=== PATIENT | female | born 2005 | race African-American/Black ===

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

== ENCOUNTER 2023-02-05 10:09 | Emergency (ER) | payer OTHER, MEDICAID, SELFPAY ==
[2023-02-05] VITALS (10 sets, daily range): BP systolic 121–142; BP diastolic 75–81; PULSE 88–125; RESP 16–28; TEMP 36.7; O2SAT 98–99; BMI 35.2
[2023-02-05] MEDS: LORazepam 0.5 MG TABLET PO (11:20)
--- NOTE | 2023-02-05 11:29 | ED_ITS ---
HPI - Arrhythmia/Palpitations <Shefali Pimentel, [facility] - Last Filed: 02/05/23 13:21> General Chief Complaint: Arrhythmia/Palpitations Stated Complaint: panic attack, heart palpatations Time Seen by Provider: 02/05/23 10:39 Source: patient Mode of arrival: Ambulatory History of Present Illness HPI narrative: This is a 18-year-old female presents to the emergency department with her father after reported panic attack earlier today. States that she has not seen a primary care provider in a couple of years and does not take anything for mood. She denies homicidal or suicidal ideation, states that she does not know why this sensation of palpitations came on, denies shortness of breath, recent illness like fever or chills, denies any urinary complaint, denies any changes to her health or daily activities recently. States that she is had panic attacks in the past, states they come on and cause her to feel like her heart is racing. She denies chest pressure or chest pain, denies any recent injury or illness. She states that she is been hydrated denies any unsafe environment at home or at work. 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 She states that they have a good relationship. She is not in counseling and does not have a therapist. She states that she is no longer on control pills, her last menstrual cycle was last month, states she has irregular cycles, denies any abdominal pain or pelvic pain, states that she does not have any abnormal vaginal discharge but on review of her previous visits, she is had history of vaginitis and bacterial vaginosis. She denies any upper respiratory symptoms like cough, congestion or rhinorrhea. Related Data Home Medications Medication Instructions Recorded Confirmed control PO 01/16/22 10/08/22 Previous Rx's Medication Instructions Recorded triamcinolone acetonide 0.5 % 1 applic topical TID #15 grams 01/16/22 topical cream permethrin 1 % topical liquid 30 ml topical ONCE #59 mL 10/08/22 (Lice Treatment (permethrin)) lorazepam 0.5 mg tablet 0.5 mg PO BID PRN anxiety #5 tabs 02/05/23 metronidazole 500 mg tablet 500 mg PO BID 10 days #20 tabs 02/05/23 nitrofurantoin 100 mg PO BID 5 days #10 caps 02/05/23 monohydrate/macrocrystals 100 mg capsule (Macrobid) Allergies Allergy/AdvReac Type Severity Reaction Status Date / Time No Known Drug Allergies Allergy Verified 02/05/23 10:12 Review of Systems <TERRY Coleman - Last Filed: 02/05/23 13:21> Review of Systems ROS Unobtainable: All systems reviewed & are unremarkable except as noted in HPI and below Patient History <TERRY Coleman - Last Filed: 02/05/23 13:21> Medical History Acne (~2016) Anxiety (~2019) Eczema Heavy menstrual period (~2020) Influenza B Irregular menstrual cycle (~2019) Painful menstrual periods (~2020) Family History Grandfather Diabetes mellitus Hypertension Grandmother Breast cancer Social History Smoking Status: Never smoker Smoking Status: Never smoker alcohol intake frequency: holidays/special occasions only Substance Use Type: does not use Exam <TERRY Coleman - Last Filed: 02/05/23 13:21> Narrative Exam Narrative: Reviewed vitals signs and nursing notes. General: Pleasant, sitting upright, in no acute distress, well groomed, afebrile HEENT: symmetrical facial expressions, moist mucous membranes, neck is supple CV: regular rate and rhythm, warm extremities Respiratory: normal work of breathing, without tachypnea or hypoxia. GI: abdomen soft, nondistended, without CVA tenderness bilaterally. MSK: moves all extremities, no weakness, normal tone, ambulatory without deficit Skin: brisk capillary refill, without rash or wound Neuro: clear speech and normal cognition, A&O x3, GCS 15, no focal motor or sensation deficits, flat affect Initial Vital Signs Initial Vital Signs: Vital Signs Temperature 98.1 F 02/05/23 10:12 Pulse Rate 125 H 02/05/23 10:12 Respiratory Rate 16 02/05/23 10:12 Blood Pressure 142/77 H 02/05/23 10:12 Pulse Oximetry 98 02/05/23 10:12 Oxygen Delivery Method Room Air 02/05/23 10:12 <Remigio Pritchard DO - Last Filed: 02/06/23 08:42> Initial Vital Signs Initial Vital Signs: Vital Signs Temperature 98.1 F 02/05/23 10:12 Pulse Rate 125 H 02/05/23 10:12 Respiratory Rate 16 02/05/23 10:12 Blood Pressure 142/77 H 02/05/23 10:12 Pulse Oximetry 98 02/05/23 10:12 Oxygen Delivery Method Room Air 02/05/23 10:12 Course <TERRY Coleman - Last Filed: 02/05/23 13:21> Orders Ordered: Discontinued Medications Lorazepam (Lorazepam 0.5 Mg Tablet) 0.5 mg PO NOW ONE Stop: 02/05/23 10:56 Last Admin: 02/05/23 11:20 Dose: 0.5 mg Documented By: NELSON Metronidazole (Metronidazole 500 Mg Tablet) 500 mg PO NOW ONE Stop: 02/05/23 12:50 Last Admin: 02/05/23 13:20 Dose: 500 mg Documented By: SERVANDO Nitrofurantoin Macrocrystals (Nitrofurantoin Er 100 Mg Capsule) 100 mg PO NOW ONE Stop: 02/05/23 12:50 Last Admin: 02/05/23 13:20 Dose: 100 mg Documented By: SERVANDO Vital Signs Vital signs: Vital Signs - 8 hr 02/05/23 10:12 02/05/23 10:32 02/05/23 10:33 Temperature 98.1 F Pulse Rate 125 H 102 H 100 H Respiratory Rate 16 28 H 21 Blood Pressure 142/77 H Pulse Oximetry 98 98 99 Oxygen Delivery Method Room Air 02/05/23 10:34 02/05/23 10:34 02/05/23 11:00 Temperature Pulse Rate 93 H 94 H Respiratory Rate 16 Blood Pressure 130/80 121/75 Pulse Oximetry 98 Oxygen Delivery Method 02/05/23 11:00 02/05/23 11:30 02/05/23 11:30 Temperature Pulse Rate 97 H 97 H Respiratory Rate 18 20 Blood Pressure 127/77 Pulse Oximetry 99 98 Oxygen Delivery Method 02/05/23 12:26 02/05/23 12:30 02/05/23 13:00 Temperature Pulse Rate 110 H 88 98 H Respiratory Rate 20 22 Blood Pressure Pulse Oximetry 98 98 98 Oxygen Delivery Method <Remigio Pritchard DO - Last Filed: 02/06/23 08:42> Orders Ordered: Discontinued Medications Lorazepam (Lorazepam 0.5 Mg Tablet) 0.5 mg PO NOW ONE Stop: 02/05/23 10:56 Last Admin: 02/05/23 11:20 Dose: 0.5 mg Documented By: NELSON Metronidazole (Metronidazole 500 Mg Tablet) 500 mg PO NOW ONE Stop: 02/05/23 12:50 Last Admin: 02/05/23 13:20 Dose: 500 mg Documented By: SERVANDO Nitrofurantoin Macrocrystals (Nitrofurantoin Er 100 Mg Capsule) 100 mg PO NOW ONE Stop: 02/05/23 12:50 Last Admin: 02/05/23 13:20 Dose: 100 mg Documented By: SERVANDO Vital Signs Vital signs: Vital Signs - 8 hr 02/05/23 10:12 02/05/23 10:32 02/05/23 10:33 Temperature 98.1 F Pulse Rate 125 H 102 H 100 H Respiratory Rate 16 28 H 21 Blood Pressure 142/77 H Pulse Oximetry 98 98 99 Oxygen Delivery Method Room Air 02/05/23 10:34 02/05/23 10:34 02/05/23 11:00 Temperature Pulse Rate 93 H 94 H Respiratory Rate 16 Blood Pressure 130/80 121/75 Pulse Oximetry 98 Oxygen Delivery Method 02/05/23 11:00 02/05/23 11:30 02/05/23 11:30 Temperature Pulse Rate 97 H 97 H Respiratory Rate 18 20 Blood Pressure 127/77 Pulse Oximetry 99 98 Oxygen Delivery Method 02/05/23 12:26 02/05/23 12:30 02/05/23 13:00 Temperature Pulse Rate 110 H 88 98 H Respiratory Rate 20 22 Blood Pressure Pulse Oximetry 98 98 98 Oxygen Delivery Method MDM - Arrhythmia/Palpitations <TERRY Coleman - Last Filed: 02/05/23 13:21> Lab Data 02/05/23 11:59 02/05/23 11:59 Labs: Lab Results 02/05/23 02/05/23 02/05/23 Range/Units 11:59 11:59 11:59 WBC 11.3 H (4.5-11.0) X10^3/uL RBC 5.32 H (4.0-5.2) X10^6/uL Hgb 16.3 H (12.0-16.0) g/dL Hct 47.2 H (36-46) % MCV 88.6 (80-100) fL MCH 30.6 (26-34) PG MCHC 34.5 (30-36) % RDW 12.4 (11.6-14.8) % Plt Count 288 (150-400) X10^3/uL Neut % (Auto) 78.3 H (50-75) % Lymph % (Auto) 15.8 L (25-40) % [place] % (Auto) 5.2 (3-14) % Eos % (Auto) 0.5 L (2-4) % Baso % (Auto) 0.2 (0-2) % Neut # (Auto) 8900 H (2813-0669) /uL Lymph # (Auto) 1800 (5639-7020) /uL [place] # (Auto) 600 (0-900) /uL Eos # (Auto) 100 (0-450) /uL Baso # (Auto) 0 (0-100) /uL Sodium 139 (137-145) mmol/L Potassium 3.9 (3.4-5.1) mmol/L Chloride 106 (98-107) mmol/L Carbon Dioxide 23 (22-32) mmol/L BUN 9 (7-17) mg/dL Creatinine 0.69 (0.52-1.04) mg/dL Estimated GFR > 60 (>60) mL/min BUN/Creatinine Ratio 13.0 (6-22) Glucose 83 (70-100) mg/dL Calcium 9.5 (8.4-10.2) mg/dL Magnesium 1.8 (1.6-2.3) mg/dL Total Bilirubin 0.6 (0.2-1.3) mg/dL AST 22 (14-36) IU/L ALT 26 (<35) IU/L Alkaline Phosphatase 88 (38-126) U/L Total Protein 8.2 (6.3-8.2) g/dL Albumin 4.7 (3.5-5.0) g/dL Globulin 3.5 (1.7-4.1) g/dL Albumin/Globulin Ratio 1.3 (1.0-2.8) TSH 0.598 (0.47-4.68) uIU/mL Free T4 1.30 (0.78-2.19) ng/dL Urine RBC (0-5/HPF) Urine WBC (0-5/HPF) Ur Squamous Epith Cells (0-5/HPF) Urine Bacteria (None) Urine Mucus (Negative) 02/05/23 Range/Units 12:28 WBC (4.5-11.0) X10^3/uL RBC (4.0-5.2) X10^6/uL Hgb (12.0-16.0) g/dL Hct (36-46) % MCV (80-100) fL MCH (26-34) PG MCHC (30-36) % RDW (11.6-14.8) % Plt Count (150-400) X10^3/uL Neut % (Auto) (50-75) % Lymph % (Auto) (25-40) % [place] % (Auto) (3-14) % Eos % (Auto) (2-4) % Baso % (Auto) (0-2) % Neut # (Auto) (3933-5684) /uL Lymph # (Auto) (1847-7348) /uL [place] # (Auto) (0-900) /uL Eos # (Auto) (0-450) /uL Baso # (Auto) (0-100) /uL Sodium (137-145) mmol/L Potassium (3.4-5.1) mmol/L Chloride (98-107) mmol/L Carbon Dioxide (22-32) mmol/L BUN (7-17) mg/dL Creatinine (0.52-1.04) mg/dL Estimated GFR (>60) mL/min BUN/Creatinine Ratio (6-22) Glucose (70-100) mg/dL Calcium (8.4-10.2) mg/dL Magnesium (1.6-2.3) mg/dL Total Bilirubin (0.2-1.3) mg/dL AST (14-36) IU/L ALT (<35) IU/L Alkaline Phosphatase (38-126) U/L Total Protein (6.3-8.2) g/dL Albumin (3.5-5.0) g/dL Globulin (1.7-4.1) g/dL Albumin/Globulin Ratio (1.0-2.8) TSH (0.47-4.68) uIU/mL Free T4 (0.78-2.19) ng/dL Urine RBC None seen (0-5/HPF) Urine WBC 5-10/hpf H (0-5/HPF) Ur Squamous Epith Cells 5-10 /hpf H (0-5/HPF) Urine Bacteria Many (>30) H (None) Urine Mucus 2+ H (Negative) Point of Care Testing Test Results Negative Urine Dip Bedside Urine Glucose Negative Bedside Urine Bilirubin - Negative Bedside Urine Ketone +/- 5 Urine Specific [place] 1.015 Bedside Urine Occult Blood - Negative Bedside Urine pH 6.0 Bedside Urine Protein - Negative Bedside Urine Urobilinogen - Negative Bedside Urine Nitrite - Negative Bedside Urine Leukocytes - Negative Esterase ECG Data Interpretation: EKG independently reviewed by myself at 1024 sinus tachycardia with regular rate at 120 bpm with regular axis and intervals. No STEMI, ST segment changes, arrhythmia, or acute ischemic changes. MDM Narrative Medical decision making narrative: Chief Complaint:palpitations, panic attack Primary historian: Patient, father at bedside Multiple etiologies for patient's complaint considered including, but not limited to: Dehydration, mood disorder, panic attack, electrolyte abnormality, thyroid disorder, bacterial infection, urinary tract infection, vaginitis, arrhythmia, anemia other toxidrome This patient presented with tachycardia and reported palpitations with a panic attack with no apparent cause. Patient is afebrile with no infectious symptoms, no signs of hyperthyroidism in the history and TSH pending, considered PE but less likely (no chest pain, sob, DVT risk factors, leg swelling, and satting well), doubt ACS (no chest pain, non STEMI ekg), no anemia on CBC, but there is hemoconcentration patient denies any drug/alcohol intoxication or withdrawal, patient euvolemic on exam and does not appear dry so doubt orthostatic changes. I have independently reviewed the patient's vital signs and nursing notes as well as prior records if available. Course of care: Social work met with the patient and got patient an appointment tomorrow with Linda STEWART at 15:15. Patient will follow-up at this appointment as she does not have a primary care provider. My interpretation of lab studies: Patient has hemoconcentration with leukocytosis of 11.3, no electrolyte abnormalities, normal TSH and T4, UA with many urine bacteria, some contaminant, wet prep is positive for clue cells, will treat for bacterial vaginosis as well as UTI. Patient will follow-up with Linda Powell tomorrow at 15:15. I think she has dehydration today, encouraged her to stay hydrated, her symptoms of anxiety were improve with 0.5 mg of lorazepam. I gave her 5 tabs this to use as needed for panic sensation. She was not interested in a therapist today. Patient and her father state understanding of discharge instructions and understand the strict return precautions. Social considerations that may affect disposition: none Questions are addressed and there is agreement with the plan and for follow-up. I consulted with the ED attending physician Dr. Pritchard as needed for higher level of care considerations and they were available for discussion and recommendations regarding plan of care and diagnostic testing. Patient is appropriate for outpatient management. <Remigio Pritchard, DO - Last Filed: 02/06/23 08:42> Lab Data Labs: Lab Results 02/05/23 02/05/23 02/05/23 Range/Units 11:59 11:59 11:59 WBC 11.3 H (4.5-11.0) X10^3/uL RBC 5.32 H (4.0-5.2) X10^6/uL Hgb 16.3 H (12.0-16.0) g/dL Hct 47.2 H (36-46) % MCV 88.6 (80-100) fL MCH 30.6 (26-34) PG MCHC 34.5 (30-36) % RDW 12.4 (11.6-14.8) % Plt Count 288 (150-400) X10^3/uL Neut % (Auto) 78.3 H (50-75) % Lymph % (Auto) 15.8 L (25-40) % [place] % (Auto) 5.2 (3-14) % Eos % (Auto) 0.5 L (2-4) % Baso % (Auto) 0.2 (0-2) % Neut # (Auto) 8900 H (2454-9044) /uL Lymph # (Auto) 1800 (9215-7142) /uL [place] # (Auto) 600 (0-900) /uL Eos # (Auto) 100 (0-450) /uL Baso # (Auto) 0 (0-100) /uL Sodium 139 (137-145) mmol/L Potassium 3.9 (3.4-5.1) mmol/L Chloride 106 (98-107) mmol/L Carbon Dioxide 23 (22-32) mmol/L BUN 9 (7-17) mg/dL Creatinine 0.69 (0.52-1.04) mg/dL Estimated GFR > 60 (>60) mL/min BUN/Creatinine Ratio 13.0 (6-22) Glucose 83 (70-100) mg/dL Calcium 9.5 (8.4-10.2) mg/dL Magnesium 1.8 (1.6-2.3) mg/dL Total Bilirubin 0.6 (0.2-1.3) mg/dL AST 22 (14-36) IU/L ALT 26 (<35) IU/L Alkaline Phosphatase 88 (38-126) U/L Total Protein 8.2 (6.3-8.2) g/dL Albumin 4.7 (3.5-5.0) g/dL Globulin 3.5 (1.7-4.1) g/dL Albumin/Globulin Ratio 1.3 (1.0-2.8) TSH 0.598 (0.47-4.68) uIU/mL Free T4 1.30 (0.78-2.19) ng/dL Urine RBC (0-5/HPF) Urine WBC (0-5/HPF) Ur Squamous Epith Cells (0-5/HPF) Urine Bacteria (None) Urine Mucus (Negative) 02/05/23 Range/Units 12:28 WBC (4.5-11.0) X10^3/uL RBC (4.0-5.2) X10^6/uL Hgb (12.0-16.0) g/dL Hct (36-46) % MCV (80-100) fL MCH (26-34) PG MCHC (30-36) % RDW (11.6-14.8) % Plt Count (150-400) X10^3/uL Neut % (Auto) (50-75) % Lymph % (Auto) (25-40) % [place] % (Auto) (3-14) % Eos % (Auto) (2-4) % Baso % (Auto) (0-2) % Neut # (Auto) (5534-0615) /uL Lymph # (Auto) (9147-6154) /uL [place] # (Auto) (0-900) /uL Eos # (Auto) (0-450) /uL Baso # (Auto) (0-100) /uL Sodium (137-145) mmol/L Potassium (3.4-5.1) mmol/L Chloride (98-107) mmol/L Carbon Dioxide (22-32) mmol/L BUN (7-17) mg/dL Creatinine (0.52-1.04) mg/dL Estimated GFR (>60) mL/min BUN/Creatinine Ratio (6-22) Glucose (70-100) mg/dL Calcium (8.4-10.2) mg/dL Magnesium (1.6-2.3) mg/dL Total Bilirubin (0.2-1.3) mg/dL AST (14-36) IU/L ALT (<35) IU/L Alkaline Phosphatase (38-126) U/L Total Protein (6.3-8.2) g/dL Albumin (3.5-5.0) g/dL Globulin (1.7-4.1) g/dL Albumin/Globulin Ratio (1.0-2.8) TSH (0.47-4.68) uIU/mL Free T4 (0.78-2.19) ng/dL Urine RBC None seen (0-5/HPF) Urine WBC 5-10/hpf H (0-5/HPF) Ur Squamous Epith Cells 5-10 /hpf H (0-5/HPF) Urine Bacteria Many (>30) H (None) Urine Mucus 2+ H (Negative) Point of Care Testing Test Results Negative Urine Dip Bedside Urine Glucose Negative Bedside Urine Bilirubin - Negative Bedside Urine Ketone +/- 5 Urine Specific [place] 1.015 Bedside Urine Occult Blood - Negative Bedside Urine pH 6.0 Bedside Urine Protein - Negative Bedside Urine Urobilinogen - Negative Bedside Urine Nitrite - Negative Bedside Urine Leukocytes - Negative Esterase Discharge Plan Departure Patient Disposition: Home Clinical Impression: Panic attack, Heart palpitations, Acute dehydration, Bacterial vaginosis Urinary tract infection Qualifiers: Urinary tract infection type: acute cystitis Hematuria presence: without hematuria Qualified Code(s): N30.00 - Acute cystitis without hematuria Instructions: Generalized Anxiety Disorder, Dehydration, DI for Urinary Tract Infection (UTI), DI for Bacterial Vaginosis, DI for Panic Disorder Activity Restrictions/Additional Instructions: *You have been diagnosed with dehydration, palpitations related to a panic attack. I think that it got worse because you are dehydrated, your lab work was evidence of this. You have a new provider appointment tomorrow with josé luis Powell, she will likely not be your long-term provider but can see you tomorrow and help get this started. I will call you if we need to treat you for the swab that you sent down. Please drink plenty of water today, your appointment is at 03:15 tomorrow, thank you for coming in today. I have given you 5 tabs of lorazepam to use 1/2 of if you have symptoms of panic attack. I want you to drink a full glass of water afterwards and try some deep breathing exercises to help yourself calm down. Your vaginal swab came back positive for bacterial vaginosis, this can be recurrent in come back though please finish these antibiotics. You have a urinary tract infection as well, we will treat this with Macrobid and the other one with metronidazole. Follow-up at your appointment tomorrow, hopefully you start feeling better by then and I want you to drink plenty of fluids today. *What to do: *Please continue to take your regular medications as directed. [x ] New medication prescriptions sent to your pharmacy: [ [facility]] [ ] New medication written as a paper prescription [ ] No new medications given *Please call and schedule follow up with your primary care provider in 2-3 days, at least for an update. Let them know you were seen in the Emergency Department for the above problem. We will electronically transmit a record of today's note if your PCP or specialist is in our system. *If you do not have a primary care provider please contact [phone] to establish care with one of the [facility] primary care providers. *Return to the Emergency Department for worsening symptoms, inability to keep liquids down, fever greater than 101F, chills, or other concerning symptom. Prescriptions: New lorazepam 0.5 mg tablet 0.5 mg PO BID PRN (Reason: anxiety) Qty: 5 0RF nitrofurantoin monohyd/m-cryst [Macrobid] 100 mg capsule 100 mg PO BID 5 Days Qty: 10 0RF Rx Instructions: must administer with a meal/food metronidazole 500 mg tablet 500 mg PO BID 10 Days Qty: 20 0RF No Action control PO triamcinolone acetonide 0.5 % cream 1 applic topical TID Qty: 15 1RF Lice Treatment (permethrin) 1 % liquid 30 ml topical ONCE Qty: 59 0RF Rx Instructions: Ensure skin is cool and dry before application. Apply the topical ointment to the pubic area affected. Wash off after 10 minutes. Remove any nits with fingernails, nit comb or tweezers. Put on clean unaware and clothing following treatment. Referrals: Linda Powell ARNP [Advanced Transitional Care Manager] - Stand Alone Forms: Patient Portal/API <Remigio Pritchard DO - Last Filed: 02/06/23 08:42> Cosign ED Attending Cosignature Attestation: I was immediately available in the department for consultation. Documentation sheffield s been reviewed. I agree with assessment and plan.
--- NOTE | 2023-02-05 12:01 | CM.SWNOTE ---
ED PLAY WRITER Note PLAY WRITER receives consult from ED provider TERRY Russell. It is reported that patient presents to ED due to anxiety, panic attack and heart palpitations. Patient is 18 y/o female, it is reported that she does not have current PCP. Patient has [place] [employer] insurance. PLAY WRITER enters room to meet with patient, present in room is her father. Patient presents as A/Ox4. Patient presents as quiet, calm and with somewhat flat affect. Patient endorses interest in PCP establishment/ED f/u appt. Patient endorses that she is not interested in counseling at this time. PLAY WRITER calls PCP office and schedules ED f/u PCP appt with Arnie Powell NP at [address] [place] [address] for tomorrow 02/06/23 at 3:15pm. PLAY WRITER provides this information to patient and ED provider. Plan: Patient to d/c upon medical clearance, patient to f/u with PCP appt tomorrow. KRISHAN Larios
[2023-02-05 12:07] LABS: Add Manual Diff / Slide Review NO; Basophils Absolute Auto 0 /uL (0-100); Basophils Percent Auto 0.2 % (0-2); Eosinophils Absolute Auto 100 /uL (0-450); Eosinophils Percent Auto 0.5 % (2-4); Hematocrit 47.2 % (36-46); Hemoglobin 16.3 g/dL (12.0-16.0); Lymphocytes Absolute Auto 1800 /uL (1100-4500); Lymphocytes Percent Auto 15.8 % (25-40); Mean Corpuscular HGB Conc 34.5 % (30-36); Mean Corpuscular Hemoglobin 30.6 PG (26-34); Mean Corpuscular Volume 88.6 fL (80-100); Monocytes Absolute Auto 600 /uL (0-900); Monocytes Percent Auto 5.2 % (3-14); Neutrophils Absolute Auto 8900 /uL (1500-7000); Neutrophils Percent Auto 78.3 % (50-75); Platelet Count 288 X10^3/uL (150-400); Red Blood Cell Count 5.32 X10^6/uL (4.0-5.2); Red Cell Distribution Width 12.4 % (11.6-14.8); White Blood Cell Count 11.3 X10^3/uL (4.5-11.0)
[2023-02-05 12:20] LABS: Alanine Aminotransferase 26 IU/L (<35); Albumin 4.7 g/dL (3.5-5.0); Albumin Globulin Ratio 1.3 (1.0-2.8); Alkaline Phosphatase 88 U/L (38-126); Aspartate Aminotransferase 22 IU/L (14-36); Bilirubin Total 0.6 mg/dL (0.2-1.3); Blood Urea Nitrogen 9 mg/dL (7-17); Calcium 9.5 mg/dL (8.4-10.2); Carbon Dioxide 23 mmol/L (22-32); Chloride 106 mmol/L (98-107); Estimated Glomerular Filt Rate > 60 mL/min (>60); Globulin 3.5 g/dL (1.7-4.1); Glucose 83 mg/dL (70-100); HEMOLYSIS < 15 (0-50); Magnesium 1.8 mg/dL (1.6-2.3); Potassium 3.9 mmol/L (3.4-5.1); Sodium 139 mmol/L (137-145); Total Protein 8.2 g/dL (6.3-8.2)
[2023-02-05 12:49] LABS: Bacteria Urine Many (>30); Mucus Urine 2+ (Negative); RBC Urine None Seen (0-5/HPF); Squamous Epithelial Cell Urine 5-10 /HPF (0-5/HPF); WBC Urine 5-10/HPF (0-5/HPF)
[2023-02-05 12:59] LABS: Thyroid Stimulating Hormone 0.598 uIU/mL (0.47-4.68)
[2023-02-05] MEDS: metroNIDAZOLE 500 MG TABLET PO (13:20)
[2023-02-05] MEDS: NITROFURANTOIN ER 100 MG CAPSULE PO (13:20)
== END 2023-02-05 13:33 | disposition home or self-care (01) ==
PROVIDERS: Emergency Provider Nurse Practitioner Critical Care Medicine
DX: F41.0 Panic disorder [episodic paroxysmal anxiety] (principal); R00.2 Palpitations; R07.9 Chest pain, unspecified; E86.0 Dehydration; N76.0 Acute vaginitis; N30.00 Acute cystitis without hematuria
CPT/HCPCS: 36415; 80053; 81003; 81015; 81025; 83735; 84439; 84443; 85025; 87086; 87210; 93005; 93010; 99284

== ENCOUNTER 2023-02-09 16:13 | Emergency (ER) | payer OTHER, MEDICAID, SELFPAY ==
[2023-02-09] VITALS (19 sets, daily range): BP systolic 118–164; BP diastolic 58–72; PULSE 113–188; RESP 16–24; TEMP 36.4–36.8; O2SAT 95–99
--- NOTE | 2023-02-09 16:38 | ED.ARRPALP ---
HPI - Arrhythmia/Palpitations General Chief Complaint: Arrhythmia/Palpitations Stated Complaint: Nausea, high heartrate, getting worse Time Seen by Provider: 02/09/23 16:38 Source: patient and family Mode of arrival: Ambulatory History of Present Illness HPI narrative: Patient 18-year-old female history of anxiety presenting today with palpitations. She was actually here and evaluated 02/05/2023 with palpitations and thought to have a panic attack at that time. [place] like her heart was racing similar to today. In triage her heart rate was 180 thought to be SVT but not on a monitor she was given a syringe and while being transported to her room she bear down and likely converted herself when finally placed on a monitor heart rate in the 150s in a sinus rhythm and continued to decrease. She reports that she was prescribed Wellbutrin and hydroxyzine for anxiety medication but has not yet started taking it she is been taking Macrobid and Flagyl. Last week she was diagnosed with palpitations panic attack dehydration UTI and bacterial vaginosis. She actually is found to have clue cells on her wet mount, but no growth on her urine culture, otherwise workup was negative, also had sinus tachycardia rate 125 on EKG. Related Data Previous Rx's Medication Instructions Recorded lorazepam 0.5 mg tablet 0.5 mg PO BID PRN anxiety #5 tabs 02/05/23 metronidazole 500 mg tablet 500 mg PO BID 10 days #20 tabs 02/05/23 nitrofurantoin 100 mg PO BID 5 days #10 caps 02/05/23 monohydrate/macrocrystals 100 mg capsule (Macrobid) buspirone 5 mg tablet 5 mg PO BID #90 tabs 02/06/23 hydroxyzine pamoate 25 mg capsule 25 mg PO TID PRN anxiety, panic 02/06/23 #60 caps metoprolol succinate 25 mg 25 mg PO BID #60 tabs 02/09/23 tablet,extended release 24 hr Allergies Allergy/AdvReac Type Severity Reaction Status Date / Time No Known Drug Allergies Allergy Verified 02/09/23 16:26 Review of Systems Review of Systems ROS Unobtainable: All systems reviewed & are unremarkable except as noted in HPI and below Patient History Medical History Acne (~2015) Anxiety (~2018) Eczema Heavy menstrual period (~2020) Influenza B Irregular menstrual cycle (~2020) Painful menstrual periods (~2020) Family History Grandfather Diabetes mellitus Hypertension Grandmother Breast cancer Social History Smoking Status: Never smoker Smoking Status: Never smoker alcohol intake frequency: holidays/special occasions only Substance Use Type: does not use Exam Initial Vital Signs Initial Vital Signs: Vital Signs Temperature 97.6 F 02/09/23 16:26 Pulse Rate 188 H 02/09/23 16:26 Respiratory Rate 18 02/09/23 16:26 Blood Pressure 164/71 H 02/09/23 16:26 Pulse Oximetry 95 02/09/23 16:26 Oxygen Delivery Method Room Air 02/09/23 16:26 GENERAL: Alert pleasant 18-year-old female does not appear to be having a panic attack HEENT: Head atraumatic,EOMI, pupils reactive, face symmetric, moist mucous membranes CARDIOVASCULAR: Tachycardic regular no murmurs RESPIRATORY: Breath sounds equal bilaterally, no wheezes rales or rhonchi. ABDOMEN: Soft, nontender. Normoactive bowel sounds all 4 quadrants. No guarding or rebound. EXTREMITIES: Normal range of motion, no clubbing or edema. Neurovascularly intact NEUROLOGICAL: Alert and oriented x4.Normal gait and speech. SKIN: Warm, dry, no laceration, no petechiae, no rashes or lesions. Course Orders Ordered: ED Orders 02/09/23 16:40 D Dimer Stat 02/09/23 16:44 XR chest 1V Stat EKG-12 Lead Stat 02/09/23 16:45 Complete Blood Count AUTO DIFF Stat Comprehensive Metabolic Panel Stat Lipase Stat Troponin & CK Cardiac Panel Stat 02/09/23 17:35 EKG-12 Lead Routine 02/09/23 17:48 EKG-12 Lead Routine Sodium Chloride (Normal Saline 0.9%) 1,000 mls @ 1,000 mls/hr IV CONT TITA Last Infusion: 02/09/23 18:20 Dose: 0 mls/hr Documented By: Admin: 02/09/23 17:00 Dose: 1,000 mls/hr Documented By: AMU Discontinued Medications Lorazepam (Lorazepam 2 Mg/Ml Inj) 0.5 mg IV NOW ONE Stop: 02/09/23 18:54 Last Admin: 02/09/23 19:22 Dose: 0.5 mg Documented By: TWILA Metoprolol Succinate (Metoprolol Er 25 Mg Tablet) 25 mg PO NOW ONE Stop: 02/09/23 17:44 Last Admin: 02/09/23 17:51 Dose: 25 mg Documented By: AMU Vital Signs Vital signs: Vital Signs - 8 hr 02/09/23 16:26 02/09/23 16:35 02/09/23 16:40 Temperature 97.6 F Pulse Rate 188 H 143 H 126 H Respiratory Rate 18 24 17 Blood Pressure 164/71 H 145/66 H Pulse Oximetry 95 98 98 Oxygen Delivery Method Room Air Room Air Room Air 02/09/23 16:45 02/09/23 16:50 02/09/23 17:51 Temperature Pulse Rate 113 H 134 H 136 H Respiratory Rate 20 21 Blood Pressure 125/62 Pulse Oximetry 98 98 Oxygen Delivery Method Room Air Room Air 02/09/23 16:50 02/09/23 17:00 02/09/23 17:00 Temperature Pulse Rate 134 H 113 H Respiratory Rate 21 22 Blood Pressure 127/60 Pulse Oximetry 98 98 Oxygen Delivery Method 02/09/23 17:30 02/09/23 17:30 02/09/23 18:49 Temperature Pulse Rate 130 H 134 H Respiratory Rate 17 Blood Pressure 125/62 119/61 Pulse Oximetry 98 Oxygen Delivery Method 02/09/23 17:53 02/09/23 17:53 02/09/23 18:00 Temperature Pulse Rate 140 H Respiratory Rate 19 Blood Pressure 122/59 L 121/58 L Pulse Oximetry 99 Oxygen Delivery Method 02/09/23 18:00 02/09/23 18:15 02/09/23 18:15 Temperature Pulse Rate 135 H 136 H Respiratory Rate 20 22 Blood Pressure 121/59 L Pulse Oximetry 99 98 Oxygen Delivery Method 02/09/23 18:30 02/09/23 18:30 02/09/23 18:45 Temperature Pulse Rate 138 H 133 H Respiratory Rate 20 20 Blood Pressure 121/60 Pulse Oximetry 98 98 Oxygen Delivery Method 02/09/23 18:45 02/09/23 19:00 02/09/23 19:00 Temperature Pulse Rate 125 H Respiratory Rate 21 Blood Pressure 119/61 119/67 Pulse Oximetry 98 Oxygen Delivery Method 02/09/23 19:15 02/09/23 19:15 02/09/23 19:30 Temperature Pulse Rate 124 H Respiratory Rate 17 Blood Pressure 118/69 118/70 Pulse Oximetry 98 Oxygen Delivery Method 02/09/23 19:30 Temperature Pulse Rate 123 H Respiratory Rate 21 Blood Pressure Pulse Oximetry 98 Oxygen Delivery Method Room Air MDM - Arrhythmia/Palpitations Lab Data 02/09/23 16:45 02/09/23 16:45 Labs: Lab Results 02/09/23 02/09/23 02/09/23 Range/Units 16:40 16:45 16:45 WBC 11.3 H (4.5-11.0) X10^3/uL RBC 5.56 H (4.0-5.2) X10^6/uL Hgb 16.7 H (12.0-16.0) g/dL Hct 49.1 H (36-46) % MCV 88.2 (80-100) fL MCH 29.9 (26-34) PG MCHC 34.0 (30-36) % RDW 12.5 (11.6-14.8) % Plt Count 328 (150-400) X10^3/uL Neut % (Auto) 60.2 (50-75) % Lymph % (Auto) 30.7 (25-40) % Hettinger % (Auto) 8.0 (3-14) % Eos % (Auto) 0.7 L (2-4) % Baso % (Auto) 0.4 (0-2) % Neut # (Auto) 6800 (4311-2798) /uL Lymph # (Auto) 3500 (3143-1172) /uL [place] # (Auto) 900 (0-900) /uL Eos # (Auto) 100 (0-450) /uL Baso # (Auto) 0 (0-100) /uL D-Dimer 319 (<500) ng/ml Sodium 137 (137-145) mmol/L Potassium 3.5 (3.4-5.1) mmol/L Chloride 105 (98-107) mmol/L Carbon Dioxide 21 L (22-32) mmol/L BUN 6 L (7-17) mg/dL Creatinine 0.73 (0.52-1.04) mg/dL Estimated GFR > 60 (>60) mL/min BUN/Creatinine Ratio 8.2 (6-22) Glucose 91 (70-100) mg/dL Calcium 9.6 (8.4-10.2) mg/dL Total Bilirubin 0.4 (0.2-1.3) mg/dL AST 31 (14-36) IU/L ALT 38 H (<35) IU/L Alkaline Phosphatase 88 (38-126) U/L Total Creatine Kinase 36 (30-135) U/L CK-MB (CK-2) TNP CK-MB (CK-2) Rel Index TNP Troponin I < 0.012 (0.01-0.034) ng/mL Total Protein 8.1 (6.3-8.2) g/dL Albumin 4.6 (3.5-5.0) g/dL Globulin 3.5 (1.7-4.1) g/dL Albumin/Globulin Ratio 1.3 (1.0-2.8) Lipase 45 (23-300) U/L Imaging Data Chest x-ray: Radiologist's Impresson: PROCEDURE:? XR CHEST 1V ? INDICATIONS:? chest pain ? TECHNIQUE:? One view of the chest was acquired.? ? COMPARISON:? [facility], , CHEST 2 VIEW, 10/24/2007, 19:41. ? FINDINGS:? ? Surgical changes and devices:? None.? ? Lungs and pleura:? Lungs are clear.? No pleural effusions or pneumothorax.? ? Mediastinum:? Mediastinal contours appear normal.? Heart size is normal.? ? Bones and chest wall:? No suspicious bony lesions.? Overlying soft tissues appear unremarkable.? ? IMPRESSION:? No acute cardiopulmonary findings ? ? ? Approved by: Abel Nickerson M.D. on 02/09/2023 at 16:38? ECG Data Interpretation: EKG 1. Sinus tachycardia rate [address] changes EKG 2. At this tachycardia rate 158 MDM Narrative Medical decision making narrative: Patient initially had a heart rate in triage at 180 suspected to be for SVT. She converted while going to a room and getting hooked up. She remained on a monitor heart rate increased again to 172 I myself on the monitor probable SVT.. However patient is not hyperventilating she is resting comfortably overall appears well and does not appear to be having a panic attack but is obviously having some palpitations. She bear down and there was definite sinus rhythm heart rate slowed. Blood work is overall reassuring no electrolyte abnormality. She was mild leukocytosis 11.3 similar to previous 4 days ago. Patient remains sinus tachycardic while in the ED. D-dimer is negative unlikely to be pulmonary embolism. She reports that she is still feeling anxious despite IV fluids. I do not think infection or sepsis. Dr. Salter cardiology updated on patient's symptoms test results agrees with starting her on metoprolol succinate 25 mg twice a day and follow-up in clinic. Patient still feeling slightly anxious heart rate in the 120 she is given small dose of lorazepam. Discharge Plan Departure Patient Disposition: Home Clinical Impression: SVT (supraventricular tachycardia), Anxiety Instructions: DI for Paroxysmal Supraventricular Tachycardia Activity Restrictions/Additional Instructions: *You have been diagnosed with anxiety, supraventricular tachycardia *What to do: At this time you do have arrhythmia which is not dangerous but it does need to be monitored. Hopefully the medication will help. You definitely needs her call Cardiology to schedule follow-up appointment. *Continue to take medications as directed Metoprolol 25 mg twice a day (safe to take with her other medications) --> SENT TO [facility] *Follow up with your primary care provider in 2-3 days or call [phone] Dr. Barr, call tomorrow to schedule an appointment *Return to ER if you should have increasing palpitations heart rate greater than 160 for greater than 30 minutes, dizziness lightheadedness or any new, worsening or concerning symptoms Prescriptions: New metoprolol succinate 25 mg tablet extended release 24 hr 25 mg PO BID Qty: 60 0RF No Action buspirone 5 mg tablet 5 mg PO BID Qty: 90 0RF Rx Instructions: take one tab BID. May increase to 10mg (2 tabs) in the am and 5mg in the pm after 2 weeks. hydroxyzine pamoate 25 mg capsule 25 mg PO TID PRN (Reason: anxiety, panic) Qty: 60 0RF Rx Instructions: May make drowsy, do not drive lorazepam 0.5 mg tablet 0.5 mg PO BID PRN (Reason: anxiety) Qty: 5 0RF nitrofurantoin monohyd/m-cryst [Macrobid] 100 mg capsule 100 mg PO BID 5 Days Qty: 10 0RF Rx Instructions: must administer with a meal/food metronidazole 500 mg tablet 500 mg PO BID 10 Days Qty: 20 0RF Referrals: Sage Salter MD [Physician] - Miscellaneous,MD Sara [Primary Care Provider] - Stand Alone Forms: Patient Portal/API, Work Release Note
--- NOTE | 2023-02-09 16:44 | DI.RAD.S_ITS ---
PROCEDURE: XR CHEST 1V INDICATIONS: chest pain TECHNIQUE: One view of the chest was acquired. COMPARISON: [facility], , CHEST 2 VIEW, 10/24/2007, 19:41. FINDINGS: Surgical changes and devices: None. Lungs and pleura: Lungs are clear. No pleural effusions or pneumothorax. Mediastinum: Mediastinal contours appear normal. Heart size is normal. Bones and chest wall: No suspicious bony lesions. Overlying soft tissues appear unremarkable. IMPRESSION: No acute cardiopulmonary findings Approved by: Abel Nickerson M.D. on 02/09/2023 at 16:38
[2023-02-09] MEDS: SODIUM CHLORIDE 0.9% 1,000 ML 1000 ML IV (17:00)
[2023-02-09 17:03] LABS: Add Manual Diff / Slide Review NO; Basophils Absolute Auto 0 /uL (0-100); Basophils Percent Auto 0.4 % (0-2); Eosinophils Absolute Auto 100 /uL (0-450); Eosinophils Percent Auto 0.7 % (2-4); Hematocrit 49.1 % (36-46); Hemoglobin 16.7 g/dL (12.0-16.0); Lymphocytes Absolute Auto 3500 /uL (1100-4500); Lymphocytes Percent Auto 30.7 % (25-40); Mean Corpuscular Hemoglobin 29.9 PG (26-34); Mean Corpuscular Volume 88.2 fL (80-100); Monocytes Absolute Auto 900 /uL (0-900); Neutrophils Absolute Auto 6800 /uL (1500-7000); Neutrophils Percent Auto 60.2 % (50-75); Platelet Count 328 X10^3/uL (150-400); Red Blood Cell Count 5.56 X10^6/uL (4.0-5.2); Red Cell Distribution Width 12.5 % (11.6-14.8); White Blood Cell Count 11.3 X10^3/uL (4.5-11.0)
[2023-02-09 17:06] LABS: Alanine Aminotransferase 38 IU/L (<35); Albumin 4.6 g/dL (3.5-5.0); Albumin Globulin Ratio 1.3 (1.0-2.8); Alkaline Phosphatase 88 U/L (38-126); Aspartate Aminotransferase 31 IU/L (14-36); BUN Creatinine Ratio 8.2 (6-22); Bilirubin Total 0.4 mg/dL (0.2-1.3); Blood Urea Nitrogen 6 mg/dL (7-17); Calcium 9.6 mg/dL (8.4-10.2); Carbon Dioxide 21 mmol/L (22-32); Chloride 105 mmol/L (98-107); Creatine Kinase 36 U/L (30-135); Estimated Glomerular Filt Rate > 60 mL/min (>60); Globulin 3.5 g/dL (1.7-4.1); Glucose 91 mg/dL (70-100); HEMOLYSIS 17 (0-50); Lipase 45 U/L (23-300); Potassium 3.5 mmol/L (3.4-5.1); Sodium 137 mmol/L (137-145); Total Protein 8.1 g/dL (6.3-8.2)
[2023-02-09 17:18] LABS: Troponin I < 0.012 ng/mL (0.01-0.034)
[2023-02-09] MEDS: METOPROLOL ER 25 MG TABLET PO (17:51)
[2023-02-09 18:47] LABS: D Dimer 319 ng/ml (<500)
[2023-02-09] MEDS: LORazepam 2 MG/ML INJ 0.5 MG IV (19:22)
== END 2023-02-09 19:55 | disposition home or self-care (01) ==
PROVIDERS: Emergency Provider Emergency Medicine
DX: I47.1 Supraventricular tachycardia (principal); F41.9 Anxiety disorder, unspecified; R79.89 Other specified abnormal findings of blood chemistry
CPT/HCPCS: 36415; 71045; 80053; 82550; 83690; 84484; 85025; 85379; 93005; 96361; 96374; 99284; J2060

== ENCOUNTER → 2023-04-15 08:04 | Outpatient (CLI) | payer OTHER, MEDICAID, SELFPAY ==
--- NOTE | 2023-04-15 | DI.ECHO.S_ITS ---
[facility] +---------+ : : [address] : : : : [id number] : : : : Phone: [phone] Echocardiogram Report + + :Name: APRIL MANUEL Study Date: 04/15/2023 Height: 61 in : :[facility] ReadingLocation: Weight: 170 lb : : Gender: Female BSA: 1.8 m2 : :: 2005 Age: 18 yrs BP: 118/83 mmHg: :Reason For Study: SUPRAVENTRICULAR TACHYCARDIA : :Ordering Physician: MEI, : :HOLDEN Marks Performed By: Cyndy Slade : :Referring: HOLDEN HURLEY : + + Interpretation Summary The left ventricle is normal in size and wall thickness. The left ventricular ejection fraction is normal. The ejection fraction is estimated to be 60-65%. Diastolic parameters suggest probable normal left ventricular diastolic function and normal filling pressures. The right ventricle is normal in size and function. No significant valvular pathology seen. The IVC is of normal diameter and collapses greater than 50% with a sniff. This suggests a low right atrial pressure of 3 mm Hg. Procedure: A two-dimensional transthoracic echocardiogram with color flow and Doppler was performed. The study quality was technically adequate. There is no prior echocardiogram noted for this patient. The patient was in sinus rhythm with heart rates between 74-93 bpm during the exam. Left Ventricle: The left ventricle is normal in size and wall thickness. There is no thrombus. The ejection fraction is estimated to be 60-65%. The left ventricular ejection fraction is normal. There are no focal wall motion abnormalities. Diastolic parameters suggest probable normal left ventricular diastolic function and normal filling pressures. Right Ventricle: The right ventricle is normal in size and function. Atria: The left atrial size is normal. Right atrial size is normal. There is no Doppler evidence for an interatrial shunt. Mitral Valve: The mitral valve is normal in structure and function. There is trace mitral regurgitation. Aortic Valve: The aortic valve is trileaflet. The aortic valve opens well. There is no aortic valve stenosis. No aortic regurgitation is present. Tricuspid Valve: The tricuspid valve is normal in structure and function. There is trace tricuspid regurgitation. The right ventricular systolic pressure is estimated to be at least 18 mmHg based on an estimated right atrial pressure of 3 mm Hg. Pulmonic Valve: The pulmonic valve leaflets are thin and pliable; valve motion is normal. There is trace pulmonic regurgitation. Great Vessels: The aortic root is normal size. The dimensions of the ascending aorta are normal. The IVC is of normal diameter and collapses greater than 50% with a sniff. This suggests a low right atrial pressure of 3 mm Hg. Pericardium/ Pleura There is no pericardial effusion. There is no pleural effusion. MMode/2D Measurements & Calculations LVIDd: 4.4 cm LVOT diam: 1.9 cm LVIDs: 2.7 cm Ao root diam: 2.2 cm FS: 38.5 % asc Aorta Diam: 2.2 cm EPSS: 0.49 cm Ao Arch Diam (Prox Trans): 2.4 cm IVSd: 0.89 cm LVPWd: 0.84 cm LV patrick. diameter/BSA (cm/m^2): 2.5 LV sys. diameter/BSA (cm/m^2): 1.5 LA A2 area: 14.9 cm2 RA long axis: 4.5 cm LA A4 area: 14.2 cm2 RA area: 12.8 cm2 LA length (vol): 4.6 cm RA vol: 31.2 ml LA vol: 39.0 ml RA : 17.7 ml/m2 LA vol index: 22.1 ml/m2 IVC diam: 0.99 cm RVD1 (basal): 3.1 cm RVD2 (mid): 2.8 cm TAPSE: 2.1 cm Doppler Measurements & Calculations Ao V2 max: 119.0 cm/sec LVOT Max Juan: 97.3 cm/sec Ao V2 mean: 91.5 cm/sec LV V1 max P.8 mmHg Ao max P.7 mmHg LV V1 VTI: 20.2 cm Ao mean P.6 mmHg CARRINGTON(I,D): 2.3 cm2 Ao V2 VTI: 26.1 cm CARRINGTON(V,D): 2.4 cm2 sev ratio: 0.77 CARRINGTON indexed to BSA (cm^2/m^2): 1.3 MV E max juan: 72.2 cm/sec TR max juan: 193.4 cm/sec MV A max juan: 52.0 cm/sec TR max P.0 mmHg MV E/A: 1.4 PA V2 max: 93.9 cm/sec Med Peak E' Juan: 10.4 cm/sec PA V2 mean: 74.6 cm/sec E/E' med: 6.9 PA mean P.4 mmHg Lat Peak E' Juan: 11.2 cm/sec PA pr(Accel): 17.3 mmHg E/E' lat: 6.5 E/e' average: 6.7 MV dec time: 0.20 sec SV(LVOT): 59.2 ml Reading Physician:11:17 AM
== END ==
PROVIDERS: PCP Family Medicine; Referring Provider Physician Assistant; Visit Provider Physician Assistant
DX: I47.1 Supraventricular tachycardia (principal)
CPT/HCPCS: 93306

== ENCOUNTER → 2023-05-15 19:06 | Outpatient (ROUT) | payer OTHER, MEDICAID, SELFPAY ==
[2023-05-15 20:37] LABS: Urine N gonorrhoeae NOT DETECTED
[2023-05-15 20:38] LABS: Urine Chlamydia NOT DETECTED
== END ==
PROVIDERS: PCP Family Medicine; Visit Provider Family Medicine
DX: Z11.8 Encounter for screening for other infectious and parasitic diseases (principal)
CPT/HCPCS: 81025; 87491; 87591

== ENCOUNTER 2023-07-26 15:41 | Emergency (ER) | payer OTHER, MEDICAID, SELFPAY ==
[2023-07-26 16:17] VITALS: BP 118/75; PULSE 75; RESP 12; TEMP 36.8; O2SAT 99; BMI 34.0
--- NOTE | 2023-07-26 16:50 | DI.US.S_ITS ---
PROCEDURE: US PELVIC COMPLETE INDICATIONS: BLEEDING X 21 DAYS TECHNIQUE: Real-time scanning was performed of the pelvic organs, with image documentation. Additional endovaginal scanning was necessary due to incomplete visualization of the adnexal and endometrial structures by transabdominal scanning. COMPARISON: [facility], PELVIC LIMITED, 01/14/2021, 11:47. [facility], , PELVIC COMPLETE, 08/04/2020, 23:36. FINDINGS: Uterus: Uterus is retroverted and normal in size at 5.9 x 4.8 x 3.9 cm. The myometrium is heterogeneous. The endometrial stripe measures within normal limits at 12 mm. Complex free fluid can be seen along the endometrial stripe within the uterine fundus. No abnormal vascularity can be seen. The demonstrates a potential arcuate configuration. Complex mobile fluid can be seen at the level of the cervix. Ovaries: The right ovary measures 3.7 x 2.2 x 2 cm, with a calculated ovarian volume of 8.3 cc. Adjacent to the right ovary, there is a paraovarian cyst that measures up to 16 mm. Adjacent The left ovary measures 4 x 2 x 2.4 cm, with a calculated ovarian volume of 10 cc. More than 12 follicles can be seen involving each ovary. Other: A mild amount of complex free fluid can be seen adjacent to both ovaries. IMPRESSION: More than 12 follicles can be seen involving each ovary, which is consistent with polycystic ovarian syndrome. There is complex free fluid seen along the endometrial stripe within the uterine fundus as well as at the level of the cervix. The endometrial stripe now measures within normal limits for thickness. There is a mild amount of free fluid seen adjacent to each ovary. We strive to produce accurate, complete, and clear reports of imaging services. To assist us in improving patient care, this report was composed using standard report templates and voice recognition software. Therefore, it may contain abnormal punctuation, insertions and/or omissions. Occasional wrong-word or sound-alike substitutions may occur. Though we review the report and make efforts to correct it, we do recommend that the report be read carefully in proper context to recognize any text inaccuracies. Dictated by: Rod To M.D. on 07/26/2023 at 17:41 Approved by: Rod To M.D. on 07/26/2023 at 17:46
[2023-07-26 17:20] LABS: Add Manual Diff / Slide Review NO; Basophils Absolute Auto 0 /uL (0-100); Basophils Percent Auto 0.6 % (0-2); Eosinophils Absolute Auto 200 /uL (0-450); Hematocrit 40.2 % (36-46); Hemoglobin 13.7 g/dL (12.0-16.0); Lymphocytes Absolute Auto 3100 /uL (1100-4500); Lymphocytes Percent Auto 35.4 % (25-40); Mean Corpuscular Volume 88.2 fL (80-100); Monocytes Absolute Auto 600 /uL (0-900); Monocytes Percent Auto 6.8 % (3-14); Neutrophils Absolute Auto 4800 /uL (1500-7000); Neutrophils Percent Auto 55.2 % (50-75); Platelet Count 298 X10^3/uL (150-400); Red Blood Cell Count 4.55 X10^6/uL (4.0-5.2); Red Cell Distribution Width 13.2 % (11.6-14.8); White Blood Cell Count 8.7 X10^3/uL (4.5-11.0)
[2023-07-26 17:27] LABS: Alanine Aminotransferase 31 IU/L (<35); Albumin Globulin Ratio 1.3 (1.0-2.8); Alkaline Phosphatase 74 U/L (38-126); Aspartate Aminotransferase 21 IU/L (14-36); BUN Creatinine Ratio 12.1 (6-22); Bilirubin Total 0.4 mg/dL (0.2-1.3); Blood Urea Nitrogen 8 mg/dL (7-17); Calcium 9.3 mg/dL (8.4-10.2); Carbon Dioxide 28 mmol/L (22-32); Chloride 108 mmol/L (98-107); Estimated Glomerular Filt Rate > 60 mL/min (>60); Globulin 3.2 g/dL (1.7-4.1); Glucose 100 mg/dL (70-100); HEMOLYSIS 19 (0-50); Potassium 3.9 mmol/L (3.4-5.1); Sodium 139 mmol/L (137-145); Total Protein 7.2 g/dL (6.3-8.2)
[2023-07-26 17:44] LABS: HCG Quantitative /Beta subunit < 2.4 mIU/mL
[2023-07-26 19:05] LABS: Bilirubin Urine UA NEGATIVE (NEGATIVE); Glucose Urine UA NEGATIVE (Negative); Ketones Urine UA NEGATIVE (NEGATIVE); Leukocyte Esterase Urine UA NEGATIVE (NEGATIVE); Nitrite Urine UA NEGATIVE (Negative); Occult Blood Urine UA 3+ (Negative); Protein Urine UA 2+ (Negative); Specific Gravity Urine UA 1.015 (1.000-1.035)
[2023-07-26 19:12] LABS: Appearance Urine UA CLOUDY; Color Urine UA RED; pH Urine UA 8.5 (4.5-8.0)
[2023-07-26 19:23] LABS: Bacteria Urine Few (2-10); RBC Urine >100/HPF (0-5/HPF); Squamous Epithelial Cell Urine None Seen (0-5/HPF); WBC Urine 1-5/HPF (0-5/HPF)
[2023-07-26 19:24] LABS: Culture Indicated Urine Cult Not Indicated
--- NOTE | 2023-07-26 21:53 | ED_ITS ---
HPI - General Adult General Chief complaint: Vaginal Bleeding Stated complaint: Vaginal bleeding T-21 Time Seen by Provider: 07/26/23 17:58 Source: patient Mode of arrival: Ambulatory Limitations: no limitations History of Present Illness HPI narrative: Patient is a 18-year-old female. Up until 2 months ago has been very regular with her menstrual cycles. She is not on control. Has never been . She states that 2 months ago she went an entire month without a menstrual cycle and now she is having off and on vaginal bleeding for the past 3 weeks. There are times when it is worse than others. No abdominal pain. No change in bowel habits. No urinary symptoms. No fevers. Related Data Previous Rx's Medication Instructions Recorded hydroxyzine pamoate 25 mg capsule 25 mg PO TID PRN anxiety, panic 02/06/23 #60 caps metoprolol succinate 25 mg 25 mg PO BID #180 tabs 03/18/23 tablet,extended release 24 hr buspirone 10 mg tablet 10 mg PO BID #180 tabs 05/15/23 drospirenone 3 mg-ethinyl 1 tab PO DAILY #28 tabs 05/15/23 estradiol 0.02 mg tablet (MARIA GUADALUPE (28)) Allergies Allergy/AdvReac Type Severity Reaction Status Date / Time No Known Drug Allergies Allergy Verified 07/26/23 16:20 Review of Systems Constitutional Constitutional: Reports system reviewed and no additional complaints, except as documented Gastrointestinal Gastrointestinal: Reports system reviewed and no additional complaints, except as documented Genitourinary Genitourinary: Reports system reviewed and no additional complaints, except as documented Integumentary/Breasts Skin/Breast: Reports system reviewed and no additional complaints, except as documented Hematologic/Lymphatic On Anticoagulants: No Patient History Medical History Obesity (BMI 30-39.9) Tachycardia Acne (~2016) Influenza B Family History Grandfather Diabetes mellitus Hypertension Grandmother Breast cancer Social History Smoking Status: Never smoker Smoking Status: Never smoker alcohol intake frequency: holidays/special occasions only Substance Use Type: does not use Exam Initial Vital Signs Initial Vital Signs: Vital Signs Temperature 98.3 F 07/26/23 16:17 Pulse Rate 75 07/26/23 16:17 Respiratory Rate 12 07/26/23 16:17 Blood Pressure 118/75 07/26/23 16:17 Pulse Oximetry 99 07/26/23 16:17 Oxygen Delivery Method Room Air 07/26/23 16:17 Const General: comfortable and No ill appearing [facility] Head: normal to inspection and normocephalic Resp Effort & Inspection: normal respiratory effort Cardio Rate: regular rate GI Inspection: non-distended Neuro General: patient alert, patient awake, patient oriented x3 and moves all extremities Extrem General: normal to inspection Course Orders Ordered: ED Orders 07/26/23 16:50 US pelvic complete Stat 07/26/23 17:00 Complete Blood Count AUTO DIFF Stat Comprehensive Metabolic Panel Stat HCG Quantitative /Beta subunit Stat Type and Screen Stat 07/26/23 18:47 Urinalysis and Microscopic Stat Vital Signs Vital signs: Vital Signs - 8 hr 07/26/23 16:17 Temperature 98.3 F Pulse Rate 75 Respiratory Rate 12 Blood Pressure 118/75 Pulse Oximetry 99 Oxygen Delivery Method Room Air Medical Decision Making Lab Data Lab results reviewed: Yes I reviewed the patient's lab results. 07/26/23 17:00 07/26/23 17:00 Labs: Lab Results 07/26/23 07/26/23 Range/Units 17:00 18:47 WBC 8.7 (4.5-11.0) X10^3/uL RBC 4.55 (4.0-5.2) X10^6/uL Hgb 13.7 (12.0-16.0) g/dL Hct 40.2 (36-46) % MCV 88.2 (80-100) fL MCH 30.0 (26-34) PG MCHC 34.0 (30-36) % RDW 13.2 (11.6-14.8) % Plt Count 298 (150-400) X10^3/uL Neut % (Auto) 55.2 (50-75) % Lymph % (Auto) 35.4 (25-40) % Cameron % (Auto) 6.8 (3-14) % Eos % (Auto) 2.0 (2-4) % Baso % (Auto) 0.6 (0-2) % Neut # (Auto) 4800 (5992-5553) /uL Lymph # (Auto) 3100 (7136-4439) /uL Cameron # (Auto) 600 (0-900) /uL Eos # (Auto) 200 (0-450) /uL Baso # (Auto) 0 (0-100) /uL Sodium 139 (137-145) mmol/L Potassium 3.9 (3.4-5.1) mmol/L Chloride 108 H (98-107) mmol/L Carbon Dioxide 28 (22-32) mmol/L BUN 8 (7-17) mg/dL Creatinine 0.66 (0.52-1.04) mg/dL Estimated GFR > 60 (>60) mL/min BUN/Creatinine Ratio 12.1 (6-22) Glucose 100 (70-100) mg/dL Calcium 9.3 (8.4-10.2) mg/dL Total Bilirubin 0.4 (0.2-1.3) mg/dL AST 21 (14-36) IU/L ALT 31 (<35) IU/L Alkaline Phosphatase 74 (38-126) U/L Total Protein 7.2 (6.3-8.2) g/dL Albumin 4.0 (3.5-5.0) g/dL Globulin 3.2 (1.7-4.1) g/dL Albumin/Globulin Ratio 1.3 (1.0-2.8) HCG, Quant < 2.4 mIU/mL Urine Color Red Urine Appearance Cloudy Urine pH 8.5 H (4.5-8.0) Ur Specific [place] 1.015 (1.000-1.035) Urine Protein 2+ H (Negative) Urine Glucose (UA) Negative (Negative) g/dL Urine Ketones Negative (NEGATIVE) Urine Occult Blood 3+ H (Negative) Urine Nitrate Negative (Negative) Urine Bilirubin Negative (NEGATIVE) Urine Urobilinogen 1.0 (0.2) E.U./dL Ur Leukocyte Esterase Negative (NEGATIVE) Urine RBC >100/hpf H (0-5/HPF) Urine WBC 1-5/hpf (0-5/HPF) Ur Squamous Epith Cells None seen (0-5/HPF) Urine Bacteria Few (2-10) H (None) Ur Culture Indicated? 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 Additional endovaginal scanning was necessary due to incomplete visualization of the adnexal and endometrial structures by transabdominal scanning. COMPARISON: [facility], PELVIC LIMITED, 01/14/2021, 11:47. [facility], PELVIC COMPLETE, 08/04/2020, 23:36. FINDINGS: Uterus: Uterus is retroverted and normal in size at 5.9 x 4.8 x 3.9 cm. The myometrium is heterogeneous. The endometrial stripe measures within normal limits at 12 mm. Complex free fluid can be seen along the endometrial stripe within the uterine fundus. No abnormal vascularity can be seen. The demonstrates a potential arcuate configuration. Complex mobile fluid can be seen at the level of the cervix. Ovaries: The right ovary measures 3.7 x 2.2 x 2 cm, with a calculated ovarian volume of 8.3 cc. Adjacent to the right ovary, there is a paraovarian cyst that measures up to 16 mm. Adjacent The left ovary measures 4 x 2 x 2.4 cm, with a calculated ovarian volume of 10 cc. More than 12 follicles can be seen involving each ovary. Other: A mild amount of complex free fluid can be seen adjacent to both ovaries. IMPRESSION: More than 12 follicles can be seen involving each ovary, which is consistent with polycystic ovarian syndrome. There is complex free fluid seen along the endometrial stripe within the uterine fundus as well as at the level of the cervix. The endometrial stripe now measures within normal limits for thickness. There is a mild amount of free fluid seen adjacent to each ovary. [facility] Narrative Medical decision making narrative: Labs are unremarkable. test is negative. Ultrasound shows findings that could very well be consistent with PCOS. Patient has never had this diagnosis in the past. No indication for blood transfusion. No indication for further radiologic studies. 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 She was given return precautions. She expressed understanding and agreement. Discharge Plan Departure Patient Disposition: Home Clinical Impression: Abnormal vaginal bleeding Instructions: DI for Vaginal Bleeding Activity Restrictions/Additional Instructions: Recommend that you continue to take all of your medications as directed. Keep all of your scheduled medical appointments. Recommend that you do follow-up with a automatic blocker provider. You were given a number for Dr. Hagen below. You can contact her office for follow-up. Return to the emergency department for new symptoms. Prescriptions: No Action hydroxyzine pamoate 25 mg capsule 25 mg PO TID PRN (Reason: anxiety, panic) Qty: 60 0RF Rx Instructions: May make drowsy, do not drive buspirone 10 mg tablet 10 mg PO BID Qty: 180 3RF drospirenone-ethinyl estradiol [MARIA GUADALUPE (28)] 3-0.02 mg tablet 1 tab PO DAILY Qty: 28 11RF metoprolol succinate 25 mg tablet extended release 24 hr 25 mg PO BID Qty: 180 3RF Referrals: Cathy Hagen MD [Physician] - Beronica Agustin DO [Primary Care Provider] - Stand Alone Forms: Patient Portal/API
== END 2023-07-26 22:05 | disposition home or self-care (01) ==
PROVIDERS: Emergency Medicine; Emergency Provider Emergency Medicine; PCP Family Medicine
DX: S09.90XA Unspecified injury of head, initial encounter (principal); N93.9 Abnormal uterine and vaginal bleeding, unspecified; R51.9 Headache, unspecified; R68.84 Jaw pain; M54.2 Cervicalgia; R22.0 Localized swelling, mass and lump, head; Y04.0XXA Assault by unarmed brawl or fight, initial encounter
CPT/HCPCS: 36415; 70450; 72125; 76830; 76856; 80053; 81001; 84702; 85025; 86850; 86900; 86901; 96372; 99283; 99284; J1885

== ENCOUNTER → 2023-07-30 14:52 | Outpatient (CLI) | payer OTHER, MEDICAID, SELFPAY ==
[2023-07-30 16:27] LABS: Testosterone 93.9 ng/dL (5.71-77.0)
== END ==
PROVIDERS: PCP Family Medicine; Referring Provider Student in an Organized Health Care Education/Training Program; Visit Provider Student in an Organized Health Care Education/Training Program
DX: N93.9 Abnormal uterine and vaginal bleeding, unspecified (principal); E66.9 Obesity, unspecified
CPT/HCPCS: 82627; 83036; 83498; 84403

== ENCOUNTER → 2023-10-23 14:09 | Outpatient (CLI) | payer OTHER, MEDICAID, SELFPAY ==
[2023-10-23 15:42] LABS: Ferritin 5 ng/mL (6-137)
== END ==
PROVIDERS: PCP Family Medicine; Referring Provider Family Medicine; Visit Provider Family Medicine
DX: E28.2 Polycystic ovarian syndrome (principal); E66.9 Obesity, unspecified; F41.9 Anxiety disorder, unspecified
CPT/HCPCS: 36415; 82728

== ENCOUNTER → 2023-11-01 14:26 | Outpatient (CLI) | payer OTHER, MEDICAID, SELFPAY ==
[2023-11-01 17:17] LABS: Urine N gonorrhoeae NOT DETECTED
[2023-11-01 17:19] LABS: Urine Chlamydia NOT DETECTED
== END ==
PROVIDERS: PCP Family Medicine; Visit Provider Nurse Practitioner Family
DX: N94.9 Unspecified condition associated with female genital organs and menstrual cycle (principal); R10.9 Unspecified abdominal pain; R30.0 Dysuria
CPT/HCPCS: 81002; 81025; 87086; 87210; 87491; 87591

== ENCOUNTER → 2024-03-15 09:59 | Outpatient (CLI) | payer SELFPAY | PROVIDERS: PCP Family Medicine; Referring Provider Physician Assistant; Visit Provider Physician Assistant | DX: R10.9 Unspecified abdominal pain (principal); L29.9 Pruritus, unspecified | CPT/HCPCS: 87086; 87210 ==

== ENCOUNTER → 2024-07-06 09:37 | Outpatient (CLI) | payer OTHER, MEDICAID, SELFPAY ==
[2024-07-06 11:06] LABS: Hematocrit 47.2 % (36-46); Hemoglobin 15.8 g/dL (12.0-16.0); Mean Corpuscular HGB Conc 33.4 % (30-36); Mean Corpuscular Hemoglobin 30.4 PG (26-34); Mean Corpuscular Volume 91.2 fL (80-100); Platelet Count 278 X10^3/uL (150-400); Red Blood Cell Count 5.18 X10^6/uL (4.0-5.2); Red Cell Distribution Width 13.2 % (11.6-14.8); White Blood Cell Count 8.5 X10^3/uL (4.5-11.0)
[2024-07-06 11:57] LABS: Ferritin 20 ng/mL (6-137)
== END ==
PROVIDERS: PCP Family Medicine; Referring Provider Family Medicine; Visit Provider Family Medicine
DX: R79.0 Abnormal level of blood mineral (principal); R53.82 Chronic fatigue, unspecified; E66.9 Obesity, unspecified; Z68.30 Body mass index [BMI] 30.0-30.9, adult; E28.2 Polycystic ovarian syndrome; N94.6 Dysmenorrhea, unspecified; R00.0 Tachycardia, unspecified
CPT/HCPCS: 36415; 82728; 85027

== ENCOUNTER 2024-08-11 18:02 | Emergency (ER) | payer OTHER, MEDICAID, SELFPAY ==
[2024-08-11 18:11] VITALS: BP 125/69; PULSE 98; O2SAT 97
[2024-08-11 18:14] VITALS: BP 125/69; PULSE 106; RESP 18; TEMP 36.9; O2SAT 97; BMI 31.7
[2024-08-11 18:32] LABS: Appearance Urine UA SL CLOUDY; Bilirubin Urine UA NEGATIVE (NEGATIVE); Color Urine UA RED; Glucose Urine UA NEGATIVE (Negative); Ketones Urine UA NEGATIVE (NEGATIVE); Leukocyte Esterase Urine UA TRACE (NEGATIVE); Nitrite Urine UA POSITIVE (Negative); Occult Blood Urine UA 3+ (Negative); Protein Urine UA NEGATIVE (Negative); Specific Gravity Urine UA <=1.005 (1.000-1.035); Urobilinogen Urine UA 0.2 E.U./dL (0.2)
[2024-08-11 18:40] LABS: Bacteria Urine Few (2-10); RBC Urine 5-10/HPF (0-5/HPF); Squamous Epithelial Cell Urine 1-5 /HPF (0-5/HPF); Urine Volume 10mL (spun); WBC Urine 1-5/HPF (0-5/HPF)
[2024-08-11 18:41] LABS: Culture Indicated Urine Specimen Cultured
--- NOTE | 2024-08-11 19:24 | ED_ITS ---
HPI - Female Genitourinary General Chief complaint: Urogenital-Female Stated complaint: fever, poss uti, hx pcos Time Seen by Provider: 08/11/24 18:49 Source: patient Mode of arrival: Ambulatory History of Present Illness HPI Narrative: 19-year-old female complains of 2 days duration urinary urgency, not necessarily painful, concerned she might have a bladder infection. No fevers or chills. Had nausea prior but no longer. No vomiting. No diarrhea, no black or red stools. No injury trauma new activities. No recent antibiotics. Related Data Home Medications Medication Instructions Recorded Confirmed levonorgestrel 21 mcg/24 hr (up to intrauterine 12/25/23 07/06/24 8 years) 52 mg intrauterine device (Mirena) Previous Rx's Medication Instructions Recorded hydroxyzine pamoate 25 mg capsule 25 mg PO TID PRN anxiety, panic 02/06/23 #60 caps Subcutaneous Supplies Kit #12 ea 07/06/24 ferrous gluconate 324 mg (37.5 mg 324 mg PO DAILY #30 tabs 07/06/24 iron) tablet metformin 500 mg tablet,extended 500 mg PO DAILY pcos #90 tabs 07/06/24 release 24 hr metoprolol succinate 25 mg 25 mg PO BID #60 tabs 07/06/24 tablet,extended release 24 hr semaglutide 0.25 mg or 0.5 mg (2 0.25 mg (0.368 mL) SUBCUT QWEEK #9 07/06/24 mg/3 mL) subcutaneous pen injector mL nitrofurantoin 100 mg PO Q12H 7 days #14 caps 08/11/24 monohydrate/macrocrystals 100 mg capsule (Macrobid) phenazopyridine 200 mg tablet 200 mg PO TID PRN pain #10 tabs 08/11/24 (Pyridium) Allergies Allergy/AdvReac Type Severity Reaction Status Date / Time No Known Drug Allergies Allergy Verified 07/06/24 08:56 Review of Systems Review of Systems Narrative: see HPI Patient History Medical History (Updated 08/11/24 @ 19:36 by Rafy Griffin MD) Low ferritin PCOS (polycystic ovarian syndrome) Obesity (BMI 30-39.9) Tachycardia Acne (~2015) Influenza B Family History Grandfather Diabetes mellitus Hypertension Grandmother Breast cancer Exam Narrative Exam Narrative: GENERAL:Well-developed patient, in mild distress. HEAD: Atraumatic. Normocephalic. EYES: Pupils equal round and reactive. Extraocular motions intact. No scleral icterus. No injection or drainage. ENT: Nose without bleeding, purulent drainage. Throat without erythema, tonsillar hypertrophy or exudate. Airway patent. NECK: Trachea midline. Non tender CARDIOVASCULAR: Regular rate and rhythm without murmurs, gallops, or rubs. RESPIRATORY: Clear to auscultation. Breath sounds equal bilaterally. No wheezes, rales, or rhonchi. GASTROINTESTINAL: Abdomen soft, non-tender, nondistended. EXTREMITIES: No edema or joint tenderness. BACK: Nontender without deformity or crepitance. No flank tenderness. NEURO: AOx3. Motor functions grossly nonfocal SKIN: No rash or erythema of visible areas Initial Vital Signs Initial Vital Signs: Vital Signs Pulse Rate 98 H 08/11/24 18:11 Blood Pressure 125/69 08/11/24 18:11 Pulse Oximetry 97 08/11/24 18:11 Course Orders Ordered: ED Orders 08/11/24 18:20 Urinalysis and Microscopic Stat Urine Culture Stat Discontinued Medications Nitrofurantoin Macrocrystals (Nitrofurantoin Er 100 Mg Capsule) 100 mg PO NOW ONE Stop: 08/11/24 19:32 Last Admin: 08/11/24 19:35 Dose: 100 mg Documented By: EUGENIO Ondansetron HCl (Ondansetron 4 Mg/2 Ml Inj) 4 mg IV NOW PRN PRN Reason: Nausea And Vomiting Ondansetron HCl (Ondansetron 4 Mg Odt) 4 mg SL NOW PRN PRN Reason: Nausea And Vomiting Phenazopyridine HCl (Phenazopyridine 100 Mg Tablet) 200 mg PO NOW ONE Stop: 08/11/24 19:32 Last Admin: 08/11/24 19:35 Dose: 200 mg Documented By: EUGENIO Vital Signs Vital signs: Vital Signs - 8 hr 08/11/24 18:11 08/11/24 18:11 08/11/24 18:14 Temperature 98.5 F Pulse Rate 98 H 106 H Respiratory Rate 18 Blood Pressure 125/69 125/69 Pulse Oximetry 97 97 Oxygen Delivery Method Room Air 08/11/24 19:41 Temperature Pulse Rate 83 Respiratory Rate 16 Blood Pressure 106/68 Pulse Oximetry 97 Oxygen Delivery Method Room Air MDM - Female Genitourinary Lab Data Attestation: I reviewed the patient's lab results. Lab results narrative: Urinalysis shows positive nitrite, hematuria, some bacteria present. Urine culture sent by protocol Labs: Lab Results 08/11/24 Range/Units 18:20 Urine Color Red Urine Appearance Sl cloudy Urine pH 7.0 (4.5-8.0) Ur Specific [place] <=1.005 (1.000-1.035) Urine Protein Negative (Negative) Urine Glucose (UA) Negative (Negative) g/dL Urine Ketones Negative (NEGATIVE) Urine Occult Blood 3+ H (Negative) Urine Nitrate Positive H (Negative) Urine Bilirubin Negative (NEGATIVE) Urine Urobilinogen 0.2 (0.2) E.U./dL Ur Leukocyte Esterase Trace H (NEGATIVE) Urine RBC 5-10/hpf H (0-5/HPF) Urine WBC 1-5/hpf (0-5/HPF) Ur Squamous Epith Cells 1-5 /hpf (0-5/HPF) Urine Bacteria Few (2-10) H (None) Ur Culture Indicated? Specimen cultured Vol Urine Centrifuged 10ml (spun) Point of Care Testing Test Results Negative Urine Dip Bedside Urine Glucose Negative Bedside Urine Bilirubin - Negative Bedside Urine Ketone - Negative Urine Specific [place] 1.005 Bedside Urine Occult Blood +++ Bedside Urine pH 7.0 Bedside Urine Protein - Negative Bedside Urine Urobilinogen - Negative Bedside Urine Nitrite - Negative Bedside Urine Leukocytes + 70 Esterase MDM Narrative Medical decision making narrative: 19-year-old female with urinary urgency since yesterday, no fever, no CVA region tenderness, no emesis, anterior abdominal exam unremarkable. Urinalysis suspicious for infection, we will treat for cystitis lower tract urinary infection. First dose Pyridium and nitrofurantoin antibiotic now, prescription sent to her pharmacy. Encouraged to drink plenty of fluids. Return precautions discussed. Discharge Plan Departure Patient Disposition: Home Clinical Impression: Urinary tract infection Instructions: DI for Urinary Tract Infection (UTI) Activity Restrictions/Additional Instructions: Urinary tract infection symptoms, with urgency to urinate. Urinalysis suspicious for infection. Urine culture requested. First dose Pyridium to take the sting urgency symptoms away, further Pyridium to take as an outpatient sent to your pharmacy. First dose antibiotic nitrofurantoin given now, further prescription for further course of antibiotics sent to your pharmacy. Drink plenty of fluids. Take Tylenol and Motrin as needed for discomfort. Consider recheck urinalysis after completion course antibiotics with the regular doctor. Recheck with your regular doctor if not improving in the next couple of days. Return earlier to this/nearest emergency department for any change worsening symptoms or any concerns prior Prescriptions: New phenazopyridine [Pyridium] 200 mg tablet 200 mg PO TID PRN (Reason: pain) Qty: 10 0RF nitrofurantoin monohyd/m-cryst [Macrobid] 100 mg capsule 100 mg PO Q12H 7 Days Qty: 14 0RF Rx Instructions: must administer with a meal/food No Action hydroxyzine pamoate 25 mg capsule 25 mg PO TID PRN (Reason: anxiety, panic) Qty: 60 0RF Rx Instructions: May make drowsy, do not drive ferrous gluconate 324 mg (37.5 mg iron) tablet 324 mg PO DAILY Qty: 30 11RF metoprolol succinate 25 mg tablet extended release 24 hr 25 mg PO BID Qty: 60 11RF metformin 500 mg tablet extended release 24 hr 500 mg PO DAILY Qty: 90 3RF (DME) Subcutaneous Supplies Kit See Rx Instructions .ROUTE .MEDSUPPLY Qty: 12 3RF Rx Instructions: As directed with semaglutide semaglutide 0.25 mg or 0.5 mg (2 mg/3 mL) pen injector 0.25 mg SUBCUT QWEEK Qty: 9 1RF Rx Instructions: for 4 weeks, then increase to 0.5 mg subQ weekly. ok to compound. 1 mg/mL Mirena 21 mcg/24 hours (8 yrs) 52 mg intrauterine device intrauterine Referrals: Beronica Agustin DO [Primary Care Provider] - Stand Alone Forms: Patient Portal/API/Survey
[2024-08-11] MEDS: PHENAZOPYRIDINE 100 MG TABLET 200 MG PO (19:35)
[2024-08-11] MEDS: NITROFURANTOIN ER 100 MG CAPSULE PO (19:35)
[2024-08-11 19:41] VITALS: BP 106/68; PULSE 83; RESP 16; O2SAT 97
== END 2024-08-11 19:43 | disposition home or self-care (01) ==
PROVIDERS: Emergency Provider Emergency Medicine; PCP Family Medicine
DX: N39.0 Urinary tract infection, site not specified (principal)
CPT/HCPCS: 81001; 81003; 81025; 87086; 99283

== ENCOUNTER 2024-09-21 22:09 | Emergency (ER) | payer OTHER, SELFPAY ==
[2024-09-21 22:16] VITALS: BP 122/65; PULSE 92; RESP 15; TEMP 36.9; O2SAT 98; BMI 32.1
--- NOTE | 2024-09-21 22:54 | ED_ITS ---
HPI - Ear Problem General Chief complaint: Ear Stated complaint: R Ear Issues, Diff Hearing, Headache Time Seen by Provider: 09/21/24 22:12 Source: patient Mode of arrival: Ambulatory History of Present Illness HPI Narrative: 19yoF presents for 1 week of ear fullness, 2 days of sore throat, generalized headache. States that she feels like she is underwater. Taking cough medications without significant relief. Denies fevers, chills, other complaints. Related Data Home Medications Medication Instructions Recorded Confirmed levonorgestrel 21 mcg/24 hr (up to intrauterine 12/25/23 07/06/24 8 years) 52 mg intrauterine device (Mirena) Previous Rx's Medication Instructions Recorded hydroxyzine pamoate 25 mg capsule 25 mg PO TID PRN anxiety, panic 02/06/23 #60 caps ferrous gluconate 324 mg (37.5 mg 324 mg PO DAILY #30 tabs 07/06/24 iron) tablet metformin 500 mg tablet,extended 500 mg PO DAILY pcos #90 tabs 07/06/24 release 24 hr metoprolol succinate 25 mg 25 mg PO BID #60 tabs 07/06/24 tablet,extended release 24 hr phenazopyridine 200 mg tablet 200 mg PO TID PRN pain #10 tabs 08/11/24 (Pyridium) Subcutaneous Supplies Kit #12 ea 08/26/24 semaglutide 0.25 mg or 0.5 mg (2 0.25 mg (0.368 mL) SUBCUT QWEEK #9 09/09/24 mg/3 mL) subcutaneous pen injector mL Allergies Allergy/AdvReac Type Severity Reaction Status Date / Time No Known Drug Allergies Allergy Verified 07/06/24 08:56 Patient History Medical History Low ferritin PCOS (polycystic ovarian syndrome) Obesity (BMI 30-39.9) Tachycardia Acne (~2016) Influenza B Family History Grandfather Diabetes mellitus Hypertension Grandmother Breast cancer Social History Smoking Status: Never smoker Smoking Status: Never smoker alcohol intake frequency: holidays/special occasions only Exam Initial Vital Signs Initial Vital Signs: Vital Signs Temperature 98.5 F 09/21/24 22:16 Pulse Rate 92 H 09/21/24 22:16 Respiratory Rate 15 09/21/24 22:16 Blood Pressure 122/65 09/21/24 22:16 Pulse Oximetry 98 09/21/24 22:16 Oxygen Delivery Method Room Air 09/21/24 22:16 Const: Awake, alert, no acute distress, nontoxic appearing HEENT: TM with clear fluid bilaterally. Mild pharyngeal erythema without edema or exudates Cardiac: regular rate, regular rhythm RESP: unlabored, clear bilaterally, no wheezing Skin: Warm, Dry, intact, no rashes Neuro: AO x3, CN II-XII grossly intact, moves all extremities Course Vital Signs Vital signs: Vital Signs - 8 hr 09/21/24 22:16 Temperature 98.5 F Pulse Rate 92 H Respiratory Rate 15 Blood Pressure 122/65 Pulse Oximetry 98 Oxygen Delivery Method Room Air Medical Decision Making MDM Narrative Medical decision making narrative: One week of ear fullness and 2 days of other complaints. Exam fairly unremarkable, patient has clear fluid behind both tympanic membranes without evidence of infection. Consider viral syndrome versus allergic symptoms. No evidence of acute bacterial infection. No red flag signs of headache. Patient advised to use [id number] cough and cold medications and decongestants as well as an anti allergy pill to help with congestion. Discharge Plan Departure Patient Disposition: Home Clinical Impression: Ear fullness, Pharyngitis Instructions: DI for Viral Upper Respiratory Infection -- Adult Activity Restrictions/Additional Instructions: Your exam today is reassuring. I do see fluid behind both of your ear drums, b ut the fluid is not infected and your ear drum is intact. You do not have a blockage of ear wax in your canals. Your throat does not look like strep throat at this time. I recommend taking a daily anti allergy medication such as Claritin or Zyrtec. With this medication I also recommend [id number]-[id number] decongestants such as Mucinex or pseudoephedrine. Use the pseudoephedrine that is behind the pharmacy counter, as this has the best decongestants properties. Take Tylenol and ibuprofen as needed for headache or other discomfort. Prescriptions: No Action (DME) Subcutaneous Supplies Kit See Rx Instructions .ROUTE .MEDSUPPLY Qty: 12 3RF Rx Instructions: As directed with semaglutide semaglutide 0.25 mg or 0.5 mg (2 mg/3 mL) pen injector 0.25 mg SUBCUT QWEEK Qty: 9 1RF Rx Instructions: for 4 weeks, then increase to 0.5 mg subQ weekly. ok to compound. 1 mg/mL hydroxyzine pamoate 25 mg capsule 25 mg PO TID PRN (Reason: anxiety, panic) Qty: 60 0RF Rx Instructions: May make drowsy, do not drive ferrous gluconate 324 mg (37.5 mg iron) tablet 324 mg PO DAILY Qty: 30 11RF metoprolol succinate 25 mg tablet extended release 24 hr 25 mg PO BID Qty: 60 11RF metformin 500 mg tablet extended release 24 hr 500 mg PO DAILY Qty: 90 3RF Mirena 21 mcg/24 hours (8 yrs) 52 mg intrauterine device intrauterine phenazopyridine [Pyridium] 200 mg tablet 200 mg PO TID PRN (Reason: pain) Qty: 10 0RF Referrals: Beronica Agustin DO [Primary Care Provider] - Stand Alone Forms: Patient Portal/API/Survey, Work Release Note
== END 2024-09-21 23:03 | disposition home or self-care (01) ==
PROVIDERS: Emergency Provider Emergency Medicine; PCP Family Medicine
DX: J02.9 Acute pharyngitis, unspecified (principal); H93.8X1 Other specified disorders of right ear; R51.9 Headache, unspecified; E66.9 Obesity, unspecified; Z68.32 Body mass index [BMI] 32.0-32.9, adult
CPT/HCPCS: 99281

== ENCOUNTER → 2024-11-28 09:48 | Outpatient (CLI) | payer OTHER, SELFPAY | PROVIDERS: PCP Family Medicine; Referring Provider Family Medicine; Visit Provider Family Medicine | DX: R00.0 Tachycardia, unspecified (principal) | CPT/HCPCS: 93246; 93248 ==

== ENCOUNTER → 2025-03-22 17:18 | Outpatient (CLI) | payer OTHER, SELFPAY | PROVIDERS: PCP Family Medicine; Visit Provider Physician Assistant | DX: N89.8 Other specified noninflammatory disorders of vagina (principal); R35.0 Frequency of micturition | CPT/HCPCS: 87086; 87210 ==

== ENCOUNTER → 2025-03-28 16:31 | Outpatient (CLI) | payer OTHER, SELFPAY ==
[2025-03-28 17:27] LABS: Alanine Aminotransferase 14 IU/L (<35); Albumin 4.2 g/dL (3.5-5.0); Albumin Globulin Ratio 1.5 (1.0-2.8); Alkaline Phosphatase 67 U/L (38-126); Blood Urea Nitrogen 11 mg/dL (7-17); Calcium 9.5 mg/dL (8.4-10.2); Carbon Dioxide 27 mmol/L (22-32); Chloride 106 mmol/L (98-107); Estimated Glomerular Filt Rate > 60 mL/min (>60); Globulin 2.8 g/dL (1.7-4.1); Glucose 89 mg/dL (70-99); HEMOLYSIS < 15 (0-50); Potassium 4.5 mmol/L (3.4-5.1); Sodium 140 mmol/L (137-145); Total Protein 7.0 g/dL (6.3-8.2)
[2025-03-28 18:49] LABS: Urine N gonorrhoeae NOT DETECTED
[2025-03-28 19:00] LABS: Urine Chlamydia NOT DETECTED
== END ==
PROVIDERS: Physician Assistant; PCP Family Medicine; Referring Provider Family Medicine; Visit Provider Family Medicine
DX: N89.8 Other specified noninflammatory disorders of vagina (principal); R00.0 Tachycardia, unspecified; E66.9 Obesity, unspecified; E28.2 Polycystic ovarian syndrome
CPT/HCPCS: 36415; 80053; 87491; 87591

== ENCOUNTER → 2025-07-25 15:48 | Outpatient (CLI) | payer OTHER, SELFPAY ==
--- NOTE | 2025-07-26 12:06 | DIET.OUTPTC ---
Dietary Outpatient Consult Consult Date:07/25/25 Assessment:? 20 y F referred to dietitian for PCOS, obesity. Pt reports wanting to learn more about nutrition for PCOS. Took 1 dose of tirzepatide so far. Hx of previously being on semaglutide, unsure time. 1 month ago started carnivore diet with her dad, was interested in doing this diet until she lost desired weight then going back on more sustainable diet. Lives at home with family. Reports struggling with cravings, bakes as hobby so difficult to eliminate sweets. GI symptoms: No vomiting, some nausea and allergic rxn around her tirzepatide dose, but doctor confirms she can continue the med. Report daily BM. Diet Recall: B- 3 eggs, 4-6 oz of chk wings/hamburger lisa, steak D-4-6 oz steak/beef/chk wings Fluids:water, cranberry juice, 1 packet IV liquids a day sometimes, tea; normally does ~60 oz water 06/21/2511:04 Height 5 ft 1 in Weight 174 lb BMI 32.8 07/25/2515:41 Height 5 ft 1 in Weight 166 lb 4 oz BMI 31.4 -4.5% weight loss in 1 month Activity:not discussed at this visit Pertinent Labs:03/28/25 labs reviewed and all WNL Nutrition Diagnosis:? Food and nutrition related knowledge deficit r/t looking for guidance for nutrition for PCOS and on carnivore diet aeb pt assessment and diet recall Inadequate fiber intake r/t following carnivore diet aeb diet recall with no fiber sources Interventions:? Discussed and provided appropriate resources on the following: -Consistent eating of balanced meals to help manage energy and cravings -Anti-inflammatory style of eating and importance of whole grains/fiber sources -Protein goal, sources, amounts in certain portions/protein sources, reviewed that with current protein intake is meeting goal -Fiber and sources and amount per portions, goal -Carbohydrate portioning and sources -Nutrition when on tirzepatide (protein needs, hydration, not skipping a meal, managing symptoms of nausea) Handouts reviewed include: fiber sources and g in serving sizes, high protein sources and pt's protein goals, carbohydrate sources and portion sizing for carbs, anti-inflammatory style of eating Goals: -Mid-day protein/fiber snack (e.g. 1/4 c nuts and fruit) -Reintroducing fiber into diet 4-5 g per week (e.g. avocado added back to breakfast, veggies at dinner) until goal of 25-30 g fiber per day -Portion carb -1 baseball size serving of carb- at dinner, can add 1-2 sl sourdough at breakfast again -Avoid skipping meals/snacks even with reduced appetite on medication aim to have small protein based snack -Meals or protein/fiber snacks before baking Overall, recc reintroducing important nutrients such as fiber and portioned whole grains again over carnivore diet to help prevent cravings/over-eating and create sustainable, anti-inflammatory nutrition pattern. EER:? 65-90 g protein (1-1.5 g/kg of adjusted IBW r/t expected weight loss on trizepatide) 30-45 g CHO at meals, 25-30 g fiber daily, Monitoring/Evaluations:? F/u in 1 m (next appt delayed until early Aug r/t holidays) Electronically Signed by: Yue Webb Clinical Dietitian [address] [address]
== END ==
LOC: DIET 15:48
PROVIDERS: PCP Family Medicine; Referring Provider Family Medicine
DX: E28.2 Polycystic ovarian syndrome (principal); E66.9 Obesity, unspecified; Z68.31 Body mass index [BMI] 31.0-31.9, adult; Z71.3 Dietary counseling and surveillance
CPT/HCPCS: 97802